=== PATIENT | female | born 1970 | race Caucasian/White ===

== ENCOUNTER → 2017-01-12 | Outpatient (CLI) | payer BC ==
[~2017-01-12] MED LIST: MULT-506 PO
--- NOTE | 2017-01-12 15:29 | MAMMOGRAPHY REPORT ---
BILATERAL DIGITAL SCREENING MAMMOGRAM TOMOSYNTHESIS WITH CAD: 01/12/2017 CLINICAL HISTORY: Routine screening. Patient has no complaints. TECHNIQUE: Breast tomosynthesis in addition to standard 2D mammography was performed. Current study was also evaluated with a Computer Aided Detection (CAD) system. COMPARISON: Comparison is made to exams dated: 01/09/2016 mammogram, 01/29/2015 ultrasound, 5 mammogram, and 01/06/2015 mammogram - [facility]. BREAST COMPOSITION: The tissue of both breasts is extremely dense, which lowers the sensitivity of m ammography. FINDINGS: There is a stable biopsy marker clip in the lateral left breast. No suspicious mass, arch itectural distortion or cluster of new, suspicious microcalcifications is seen. IMPRESSION: ACR BI-RADS CATEGORY 1: NEGATIVE There is no mammographic evidence of malignancy. A 1 year screening mammogram is recommended. The pa tient will receive written notification of the results. Approximately 10% of breast cancers are not detected with mammography. A negative mammographic report should not delay biopsy if a clinically suggestive mass is present. Jen Hassan M.D. ay/:01/12/2017 10:47:06 Funeral Pre Arrangement Counselor: Karissa DUVAL(Aliyah)(Jessica), [facility] letter sent: Normal 1/2 BI-RADS Code: ACR BI-RADS Category 1: Negative
== END | disposition home or self-care (01) ==
LOC: C.MAMM 09:15
PROVIDERS: ATTEND Obstetrics & Gynecology
DX: Z12.31 Encounter for screening mammogram for malignant neoplasm of breast (principal)

== ENCOUNTER 2018-09-04 11:21 | Observation (INO) ==
[2018-09-04 12:04] LABS: Basophils # (auto) 0.02 K/uL (0-0.2); Basophils % (auto) 0.3 %; Eosinophils # (auto) 0.08 K/uL (0-0.5); Eosinophils % (auto) 1.3 %; Hematocrit (blood only) 42.4 % (37-47); Hemoglobin 15.1 g/dL (12.0-16.0); Immature Granulocytes # (auto) 0.01 K/uL (0.00-0.02); Immature Granulocytes % (auto) 0.2 %; Lymphocytes # (auto) 1.09 K/uL (1.2-3.4); Lymphocytes % (auto) 17.2 %; Mean Corpuscular Hgb Conc 35.6 g/dL (32-36); Mean Corpuscular Volume 89.1 fL (80-100); Mean Platelet Volume 10.5 fL (7.4-10.4); Monocytes # (auto) 0.39 K/uL (0.11-0.59); Monocytes % (auto) 6.2 %; Neutrophils # (auto) 4.74 K/uL (1.4-6.5); Neutrophils % (auto) 74.8 %; Platelet Count 184 K/uL (130-400); RDW Coefficient of Variation 12.5 % (11.5-14.5); RDW Standard Deviation 40.3 fL (36.4-46.3); Red Blood Count 4.76 M/uL (4.2-5.4); White Blood Count 6.33 K/uL (4.8-10.8)
--- OUTSIDE RECORDS SUMMARY | 2018-09-04 12:05 | External Medical Summary | Continuity of Care Document ---
:1970 Author Name Manolo Flores Address Unavailable Unavailable , Care Team Providers Name Role Phone Danilo Harris M.D. Unavailable [email or web address] Isauro ROJAS Unavailable Unavailable Unavailable Unavailable Unavailable Problems Encounter for gynecological examination without abnormal finding (V72.31) (Z01.419) Umbilical hernia (553.1) (K42.9) Dysmenorrhea (625.3) (N94.6) Dysfunctional uterine bleeding (626.8) (N93.8) History of Unspecified Complication Of Procedure (998.9) Status: Resolved Allergies and Adverse Reactions No Known Drug Allergies (Allergy) Soy (Allergy) Reaction: Swelling Medications Ortho-Novum (28) 1-35 MG-MCG Oral Tablet; TAKE ON E TABLET BY MOUTH DAILY Mark Ruiz Start: 04-Mar-2016 Quantity: 28 Refills: 12 Krill Oil CAPS Refills: 0 Multiple Vitamin TABS Refills: 0 ZyrTEC Allergy TBDP Refills: 0 Nasonex SUSP Refills: 0 Probiotic CAPS Refills: 0 Procedures History of Encounter for contraceptive management Status: Completed History of Hernia Repair Status: Complet ed History of Section Status: Comp leted History of Supervision of normal Status: Completed Immunizations Immunizations not documented Family History Father Family history of Diabetes Mellitus (V18.0) Status: Active Family history of Prostate Cancer (V16.42) Status: Active Grandfather Family history of Heart Disease (V17.49) Status: Active Social History - Smoking Status Unknown if ever smoked Never smoker Plan of Treatment Planned Encounters Appointment; Tremaine Harris M.D. Start: 11-Oct-2018 8:30 Req uest Planned Observations Planned Goals not documented Results No Known Results Results not documented Encounters Appointment; Tremaine Harris M.D. 11-Oct-2018 8:30 Encounter Diagnosis: Problem not documented
[2018-09-04 12:12] LABS: Appearance Urine Clear (Clear); Bacteria Urine Automated Negative (Negative); Bilirubin Urine Negative (Negative); Blood Urine Negative (Negative); Color Urine Yellow; Epithelial Cell Urine Auto >30 /lpf (0-5); Glucose Urine UA Negative (Negative); Ketones Urine Negative (Negative); Leukocyte Esterase Urine 3+ (Negative); Nitrite Urine Negative (Negative); Protein Urine Negative (Negative); RBC Urine Automated 0-4 /hpf (0-4); Specific Gravity Urine 1.018 (1.000-1.030); Urobilinogen Urine Negative (Negative); pH Urine 5.5 (4.5-7.5)
[2018-09-04 12:22] LABS: Albumin Level 4.1 gm/dl (3.4-5.0); BUN Creatinine Ratio 13.3 (10-20); Calcium 9.3 mg/dl (8.5-10.1); Creatinine Clr Calc Pharmacy 57.7 ml/min; Est GFR (African American) 87.1; Est GFR (Non-African American) 75.1; Potassium 3.7 mmol/L (3.5-5.1)
[2018-09-04 12:25] LABS: Albumin Globulin Ratio 1.1 (0.9-2); Bilirubin,Total 0.5 mg/dl (0.2-1); Globulin 3.7 gm/dl (2.5-4.0); Total Protein 7.8 gm/dl (6.4-8.2)
[2018-09-04] MEDS ORDERED: SUCRALFATE 1 GM TAB PO STA (12:41)
[2018-09-04] MEDS ORDERED: SODIUM CHLORIDE 0.9% 1000ML 1,000 ML IV ONE (12:41)
[2018-09-04] MEDS ORDERED: GI COCKTAIL ED USE PO ONE (12:41)
[2018-09-04] MEDS ORDERED: ONDANSETRON INJ 2 MG/ML 2 ML VIAL IV STA (12:41)
--- NOTE | 2018-09-04 12:54 | XRay Report ---
XR chest 1V portable CLINICAL HISTORY: 48 years-old Female presenting with Chest Pain, upper abdominal pain. TECHNIQUE: Portable upright AP view of the chest was obtained. COMPARISON: None. FINDINGS: Cardiomediastinal silhouette normal. No focal opacity. No large effusion or pneumothorax. Osseous str uctures normal. Upper abdomen normal. IMPRESSION: 1. No acute cardiopulmonary disease. Electronically signed by: Mika Winston M.D. 09/04/2018 12:53 PM
[2018-09-04 13:01] LABS: Pregnancy Test, Urine Negative (Negative)
[2018-09-04 13:28] LABS: Amphetamines+Metham, Urine Neg (Neg); Barbiturates, Urine Neg (Neg); Benzodiazepine, Urine Neg (Neg); Cocaine, Urine Neg (Neg); MDMA (Ecstacy), Urine Neg (Neg); Methadone, Urine Neg (Neg); Opiate, Urine Neg (Neg); Phencyclidine, Urine Neg (Neg)
[2018-09-04 13:32] LABS: Lyme Ab IgG w/WB Rflx Negative (Negative); Lyme Ab IgM w/WB Rflx Negative (Negative)
[2018-09-04] MEDS ORDERED: IOVERSOL 100ml IV PRN (15:25)
--- NOTE | 2018-09-04 15:44 | CT Scan Report ---
CT abd pelvis oral and IV con CLINICAL HISTORY: 48 years-old Female presenting with epigastric pain, generalized abdominal pain. TECHNIQUE: Multidetector CT of the abdomen and pelvis was performed after the administration of oral and intravenous contrast. IV contrast: 90 mL of Optiray 320. One or more dose lowering techniques wer e used consistent with the principles of ALARA (as low as reasonably achievable), including automatic exposure control, mA or kV adjustment to individual patient size, and/or use of iterative reconstruc tion. COMPARISON: 01/01/2015. CT DOSE (mGy.cm): The estimated cumulative dose is 230.05 mGy.cm. 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 Lung bases: Normal heart size. No pericardial or pleural effusion. Minimal dependent changes likely a telectasis. Liver: Normal morphology. No liver lesion. Patent hepatic vasculature. Biliary: No intrahepatic or extrahepatic biliary ductal dilatation. Normal gallbladder. Pancreas: Normal. Spleen: Normal. Adrenal glands: Normal. Kidneys and ureters: Normal. No hydronephrosis. Bladder: Normal. Pelvic organs: Uterus and ovaries normal. Bowel: Normal appendix. No bowel obstruction. Peritoneal cavity: No free fluid or intraperitoneal gas. Lymph nodes: No enlarged lymph nodes in the abdomen or pelvis. Vasculature: Aorta and IVC patent and normal in caliber. Abdominal wall: Postsurgical changes of hernia repair in the lower abdomen. No associated fluid or re current hernia. Musculoskeletal: Normal. IMPRESSION: 1. Expected postsurgical appearance status post hernia repair. No acute intra-abdominal pathology. Electronically signed by: Mika Winston M.D. 09/04/2018 3:43 PM
[2018-09-04 15:51] LABS: Cdiff Antigen Positive; Cdiff Toxin A+B Negative Cdiff Toxin (Negative)
[2018-09-04] MEDS ORDERED: VANCOMYCIN HCL 125 MG/2.5ML SOLN PO STA (16:51)
[2018-09-04] MEDS ORDERED: RASPBERRY SYRUP 5 ML UDP PO SCH (18:00)
--- NOTE | 2018-09-04 18:03 | History & Physical Report ---
Date of Service September 04, 2018 Assessment & Plan (1) Diarrhea: (2) Abdominal discomfort: Pt with ongoing epigastric discomfort, nausea, dry heaves and 3 loose BM's daily In ER pt afebrile, vitals stable. No leukocytosis, no electrolyte abnormality C-diff gene positive, with negative c-diff toxin -was started on oral vancomycin in ER -will continue oral vancomycin for now, however may not be active c-diff with nebative c-diff toxin -stool cultures pending -IVF -bland diet as tolerated -nutrition consult -monitor bmp, magnesium -if no improvement or worsening consider GI consult (3) H. pylori infection: Hx H Pylori diagnosed by EGD in 06/2018. Treated omeprazole, clarithromycin, amoxicillin x14 day. Had follow up H. pylori stool which was negative on 08/16/2018 DVT Prophylaxis -SCDs Follows with Dr Salguero for routine care Pt was seen with Dr Jimenez. See addendum History of Present Illness Chief Complaint: abdominal discomfort Primary Care Provider: Trini Macias Pt is 48 y/o F with PMH H Pylori diagnosed by EGD in 06/2018 presented to ER with c/o abdominal discomfort. Pt was treated with omeprazole, clarithromycin, amoxicillin x14 days for H. pylori in 06/2018. Patient had follow-up H. pylori stool which was negative on 08/16/2018. Has not continued to take any PPI's. Patie nt reports has had continued epigastric discomfort. States has had decreased appetite. Has been eating a bland diet (rice, oatmeal, apples) however has been eating small amounts secondary to increased epigastric discomfort with eating. Patient reports has been having intermittent dry heaves worse after eating. Reports 3 loose stools in the morning daily. States his last approximately 11 pounds over the last 6-8 weeks. She states has been feeling weak and shaky. Concerned about her nutritional status with her limited oral intake. States having trouble with awakening from sleep and unable to return to sleep over the past 2 months also. Denies fever/chills, diaphoresis, hematemesis, hematochezia, melena, PICKETT, dizziness, syncope, vision changes, neck pain, CP, SOB, orthopnea, palpitations, cough, sore throat, choking, otalgia, rhinorrhea, paresthesias, extremity weakness, extremity edema, rashes, urinary symptoms. Denies recent travel. Denies known ill contacts. Denies known hx c-diff in past. Allergies Allergy/AdvReac Type Severity Reaction Status Date / Time soy Allergy Unknown UNKNOWN Verified 09/04/18 14:35 Home Medications Home Medications Medication Instructions Recorded Confirmed Type cholecalciferol (vitamin D3) 2,000 unit PO QAM 09/04/18 09/04/18 History [Vitamin D3] loratadine [Claritin] 10 mg PO QAM 09/04/18 09/04/18 History triamcinolone acetonide [Nasacort] 1 spray INTRANASAL QAM 09/04/18 09/04/18 History Past Med/Surg History Medical History H. pylori infection (Resolved) Left ovarian cyst (Resolved) Hx of sinusitis Surgical History H/O hernia repair (Chronic) Hx of section Family History Father Diabetes Prostate cancer Mother Asthma Social History Preferred Language: German Communication Ability: Effective Principal Statistical Scientist Required: No Beliefs That Will Affect Care: None marital status: Current Living Situation: Spouse and Family current occupational status: unemployed Other Information That Helps Us Care for You: No Feels Safe at Home: Yes Safety Concerns: Feels Safe At This Time Smoking Status: Never smoker Do You Dip or Chew Tobacco: No Second Hand Exposure: No Tobacco Cessation Education Requested by Patient: No Hx Alcohol Use: No Hx Substance Use: No Review of Systems Review of Systems: All systems reviewed & are unremarkable except as noted in HPI & below Physical Exam Physical Exam: General: no distress, thin, non ill appearing Head: normocephalic, atraumatic Eyes: PERRL, EOM's intact, conjunctiva non-injected, anicteric ENT: normal inspection external ears, nose, mucous membranes moist Neck: supple, trachea midline Lungs: clear, no respiratory distress, no wheezing/rhonchi/rales CV: RRR, no murmur, no pretibial edema Abd: normal BS, soft,mild tenderness to palpation epigastric only Ext: no cyanosis, no calf tenderness Neuro: A&O x 3, no focal deficits noted, normal affect Skin: warm, dry Results & Data Vital Signs (Past 12 Hours) Vital Signs Temp Pulse Pulse Resp BP BP Pulse Ox 09/04/18 16:30 78 20 119/78 97 09/04/18 16:00 77 15 115/83 99 09/04/18 15:34 83 78 17 111/74 111/74 98 09/04/18 14:30 83 15 105/74 99 09/04/18 14:00 91 H 17 126/85 99 09/04/18 13:30 83 16 117/81 99 09/04/18 13:16 78 17 115/85 96 09/04/18 13:14 80 20 97 09/04/18 12:48 97 09/04/18 11:27 36.8 C 20 124/86 97 Laboratory Results Short CBC 09/04/18 Range/Units 11:48 WBC 6.33 (4.8-10.8) K/uL Hgb 15.1 (12.0-16.0) g/dL Hct 42.4 (37-47) % Plt Count 184 (130-400) K/uL BMP 09/04/18 11:48 Sodium 139 Potassium 3.7 Chloride 106 Carbon Dioxide 27 BUN 12 Creatinine 0.91 Glucose 122 H Calcium 9.3 Cardiac Enzymes 09/04/18 Range/Units 11:48 Troponin I < 0.015 (0-0.045) ng/ml Liver Function 09/04/18 Range/Units 11:48 Total Bilirubin 0.5 (0.2-1) mg/dl AST 21 (15-37) U/L ALT 26 (12-78) U/L Alkaline Phosphatase 73 (45-117) U/L Albumin 4.1 (3.4-5.0) gm/dl Urine 09/04/18 Range/Units 11:48 Urine Color Yellow Urine Appearance Clear (Clear) Urine pH 5.5 (4.5-7.5) Ur Specific Hubbard 1.018 (1.000-1.030) Urine Protein Negative (Negative) Urine Glucose (UA) Negative (Negative) Diagnostic Findings CT ABD/PELVIS: IMPRESSION: 1. Expected postsurgical appearance status post hernia repair. No acute intra- abdominal pathology. CXR: IMPRESSION: 1. No acute cardiopulmonary disease. Supervising Physician Co-Signing Physician Notes 48 years old female patient with Hx of abdominal discomfort and bloating, EGD few months ago showed H.Pylori gastritis, this was treated and confirmed eradication by stool test. presents with abdominal pain , nausea .dry heave , poor appetite labs within normal limit observation in medical floor IVf prn zofran for nausea GI nola Jimenez MD
--- NOTE | 2018-09-04 19:27 | Emergency Department Note ---
Entered by Yara Mcleod acting as a scribe for Víctor Meeks MD History of Present Illness General Chief complaint: Abdominal Pain Stated complaint: ABD PAIN, DRY HEAVING Time Seen by Provider: 09/04/18 12:00 Source: patient History of Present Illness Onset (ago): week(s) (6) Location: abdomen Pain Consistency: + constant Maximum Pain Intensity: 4 Quality: + other (tenderness) Associated symptoms: + loss of appetite, + rash, + weakness and + other (issues sleeping and dry heaving) The patient is a 48 year old female who presents to the ED with complaints of constant diffuse abdominal tenderness beginning 6 weeks ago. Patient stated she has been sick for a few months with dry heaving, loss of appetite, feeling weak, and not sleeping. She notes she has been treated for H Pylori, and shortly after finishing the medication to treat it she began to feel sick. The patient also reports swelling on her hands and a ring on her shoulder that she believes is ring worm. She stated she does not go outside often but attends baseball games and has children who are outside often. Patient stated no other family members are sick. She also notes they have a dog that could have brought in ticks. The patient had abdominal surgery in the past for umbilical hernia. Patient has been following with GI but could not get an appointment till September. She also notes that she been having throat pain that she associates with acid reflux. Patient denies taking any medications for current symptoms. Home Medications Home Medications Medication Instructions Recorded Confirmed Type cholecalciferol (vitamin D3) 2,000 unit PO QAM 09/04/18 09/04/18 History [Vitamin D3] loratadine [Claritin] 10 mg PO QAM 09/04/18 09/04/18 History triamcinolone acetonide [Nasacort] 1 spray INTRANASAL QAM 09/04/18 09/04/18 History Allergies Allergy/AdvReac Type Severity Reaction Status Date / Time soy Allergy Unknown UNKNOWN Verified 09/04/18 14:35 Past Med/Surg History Medical History H. pylori infection (Resolved) Left ovarian cyst (Resolved) Hx of sinusitis Surgical History H/O hernia repair (Chronic) Hx of section Family History Father Diabetes Prostate cancer Mother Asthma Social History Preferred Language: Malaysian marital status: Current Living Situation: Family current occupational status: unemployed Feels Safe at Home: Yes Smoking Status: Never smoker Hx Alcohol Use: No Hx Substance Use: No Review of Systems See HPI for pertinent positives & negatives. and A total of 10 systems reviewed and were otherwise negative Physical Exam Vital Signs Vital Signs - 24 hr 09/04/18 11:27 09/04/18 12:48 09/04/18 13:14 Temperature 36.8 C Temperature Source Oral Sepsis Recent Fever Within 48 Hours No Sepsis Action Taken by Nursing No Action Required Pulse Rate 80 Pulse Rate [Right Finger] Pulse Rate from SpO2 Sensor Pulse Rhythm Regular Respiratory Rate 20 20 Blood Pressure 124/86 Blood Pressure [Right Arm] Blood Pressure Mean 98 Blood Pressure Mean [Right Arm] Blood Pressure Position Sitting Pulse Oximetry 97 97 97 Oxygen Delivery Method Room Air Room Air Room Air 09/04/18 13:16 09/04/18 13:30 09/04/18 14:00 Temperature Temperature Source Sepsis Recent Fever Within 48 Hours Sepsis Action Taken by Nursing Pulse Rate 78 83 91 H Pulse Rate [Right Finger] Pulse Rate from SpO2 Sensor 80 83 Pulse Rhythm Respiratory Rate 17 16 17 Blood Pressure 115/85 117/81 126/85 Blood Pressure [Right Arm] Blood Pressure Mean 95 93 98 Blood Pressure Mean [Right Arm] Blood Pressure Position Pulse Oximetry 96 99 99 Oxygen Delivery Method Room Air Room Air Room Air 09/04/18 14:30 09/04/18 15:34 09/04/18 16:00 Temperature Temperature Source Sepsis Recent Fever Within 48 Hours Sepsis Action Taken by Nursing Pulse Rate 83 83 77 Pulse Rate [Right Finger] 78 Pulse Rate from SpO2 Sensor 84 Pulse Rhythm Respiratory Rate 15 17 15 Blood Pressure 105/74 111/74 115/83 Blood Pressure [Right Arm] 111/74 Blood Pressure Mean 84 86 93 Blood Pressure Mean [Right Arm] 86 Blood Pressure Position Pulse Oximetry 99 98 99 Oxygen Delivery Method Room Air Room Air Room Air 09/04/18 16:30 09/04/18 17:00 09/04/18 17:30 Temperature Temperature Source Sepsis Recent Fever Within 48 Hours Sepsis Action Taken by Nursing Pulse Rate 78 88 87 Pulse Rate [Right Finger] Pulse Rate from SpO2 Sensor 86 Pulse Rhythm Respiratory Rate 20 18 15 Blood Pressure 119/78 113/72 109/73 Blood Pressure [Right Arm] Blood Pressure Mean 91 85 85 Blood Pressure Mean [Right Arm] Blood Pressure Position Pulse Oximetry 97 95 95 Oxygen Delivery Method Room Air Room Air Room Air GENERAL: Awake, alert, well-appearing, in no acute distress HENT: Normocephalic, atraumatic. Oropharynx unremarkable. EYES: Normal conjunctiva. Sclera non-icteric. NECK: Supple. No nuchal rigidity. FROM. No JVD. RESPIRATORY: Clear to auscultation. CARDIAC: Regular rate, normal rhythm. Extremities warm and well perfused. Pulses equal. ABDOMEN: Soft, non-distended. No tenderness to palpation. No rebound or guarding. No masses. Chronic scarring on mid-abdomen that is well healed. RECTAL: Deferred. MUSCULOSKELETAL: Chest examination reveals no tenderness. The back is symmetrical on inspection without obvious abnormality. There is no CVA tenderness to palpation. No joint edema. LOWER EXTREMITIES: Calves are equal size bilaterally and non-tender. No edema. No discoloration. NEURO: Normal sensorium. No sensory or motor deficits noted. SKIN: No rash or jaundice noted. Course 1217: The patient was evaluated in room C08. A complete history and physical exam was performed. 1402: I revaluated the patient. She is resting comfortably. 1641: I revaluated the patient again. I updated her on her test results and the treatment plan. She verbally agrees and understands. 1656: I discussed the patients case with OSWALDO Mixon. She will evaluate the patient for further management. Reevaluation(s) Reevaluation #1: I discussed the patients case with OSWALDO Mixon. She will evaluate the patient for further management. Time: 16:56 Administered Medications Ioversol (Optiray 320 100ml) 90 ml IV ONCE PRN PRN Reason: Interaction Checking Stop: 09/08/18 15:24 Last Admin: 09/04/18 15:26 Dose: 90 ml Documented by: [id number] Raspberry (Raspberry) 5 ml PO Q6 SAMRA Stop: 09/18/18 17:59 Last Admin: 09/04/18 17:03 Dose: 5 ml Documented by: [id number] Discontinued Medications Al Hydrox/Mg Hydrox/Simethicone () 1 dose PO ONE ONE Stop: 09/04/18 12:42 Last Admin: 09/04/18 19:05 Dose: Not Given Documented by: [id number] Sodium Chloride (Nss 1000ml) 1,000 mls @ 999 mls/hr IV .Q1H1M ONE Stop: 09/04/18 13:41 Last Infusion: 09/04/18 14:26 Dose: 0 mls/hr Documented by: [id number] Admin: 09/04/18 12:58 Dose: 999 mls/hr Documented by: [id number] Ondansetron HCl (Zofran) 4 mg IV NOW STA Stop: 09/04/18 12:42 Last Admin: 09/04/18 12:58 Dose: 4 mg Documented by: [id number] Sucralfate (Carafate Tab) 1 gm PO NOW STA Stop: 09/04/18 12:42 Last Admin: 09/04/18 19:05 Dose: Not Given Documented by: [id number] Vancomycin HCl (Vancomycin Hcl) 125 mg PO NOW STA Stop: 09/04/18 16:52 Last Admin: 09/04/18 17:03 Dose: 125 mg Documented by: [id number] Medical Decision Making Differential Diagnosis Differential diagnosis: Etiologies such as biliary colic, cholecystitis, hepatitis, perihepatitis, panc reatitis, cardiac disease, pancreatitis, gastritis, peptic ulcer disease, appendicitis, ovarian cyst, ovarian torsion, ectopic , pelvic inflammatory disease, cystitis, diverticulitis, mesenteric ischemia, inflammatory bowel disease, ileus, bowel obstruction, aortic pathology, shingles, as well as others were considered. Medical Records Attestation: I reviewed the patient's medical records. Home Medications Current Medication List: was personally reviewed by me Laboratory Data Attestation: I reviewed the patient's lab results. Result diagrams: 09/04/18 11:48 09/04/18 11:48 Lab Results 09/04/18 09/04/18 09/04/18 Range/Units 11:48 11:48 11:48 WBC 6.33 (4.8-10.8) K/uL RBC 4.76 (4.2-5.4) M/uL Hgb 15.1 (12.0-16.0) g/dL Hct 42.4 (37-47) % MCV 89.1 (80-100) fL MCH 31.7 (25-34) pg MCHC 35.6 (32-36) g/dL RDW Std Deviation 40.3 (36.4-46.3) fL RDW Coeff of Stan 12.5 (11.5-14.5) % Plt Count 184 (130-400) K/uL MPV 10.5 H (7.4-10.4) fL Immature Gran % (Auto) 0.2 % Neut % (Auto) 74.8 % Lymph % (Auto) 17.2 % [place] % (Auto) 6.2 % Eos % (Auto) 1.3 % Baso % (Auto) 0.3 % Immature Gran # (Auto) 0.01 (0.00-0.02) K/uL Neut # (Auto) 4.74 (1.4-6.5) K/uL Lymph # (Auto) 1.09 L (1.2-3.4) K/uL [place] # (Auto) 0.39 (0.11-0.59) K/uL Eos # (Auto) 0.08 (0-0.5) K/uL Baso # (Auto) 0.02 (0-0.2) K/uL Sodium 139 (136-145) mmol/L Potassium 3.7 (3.5-5.1) mmol/L Chloride 106 (98-107) mmol/L Carbon Dioxide 27 (21-32) mmol/L Anion Gap 7.0 (3-11) BUN 12 (7-18) mg/dl Creatinine 0.91 (0.6-1.2) mg/dl Est Cr Clr Drug Dosing 57.7 ml/min Est GFR ( Amer) 87.1 Est GFR (Non-Af Amer) 75.1 BUN/Creatinine Ratio 13.3 (10-20) Glucose 122 H (70-99) mg/dl Calcium 9.3 (8.5-10.1) mg/dl Total Bilirubin 0.5 (0.2-1) mg/dl AST 21 (15-37) U/L ALT 26 (12-78) U/L Alkaline Phosphatase 73 (45-117) U/L Troponin I (0-0.045) ng/ml Total Protein 7.8 (6.4-8.2) gm/dl Albumin 4.1 (3.4-5.0) gm/dl Globulin 3.7 (2.5-4.0) gm/dl Albumin/Globulin Ratio 1.1 (0.9-2) Lipase 136 (73-393) U/L Urine Color Yellow Urine Appearance Clear (Clear) Urine pH 5.5 (4.5-7.5) Ur Specific [place] 1.018 (1.000-1.030) Urine Protein Negative (Negative) Urine Glucose (UA) Negative (Negative) Urine Ketones Negative (Negative) Urine Blood Negative (Negative) Urine Nitrite Negative (Negative) Urine Bilirubin Negative (Negative) Urine Urobilinogen Negative (Negative) Ur Leukocyte Esterase 3+ H (Negative) Urine WBC (Auto) 10-30 H (0-5) /hpf Urine RBC (Auto) 0-4 (0-4) /hpf U Hyaline Cast (Auto) 1-5 (0-5) /lpf U Epithel Cells (Auto) >30 H (0-5) /lpf Urine Bacteria (Auto) Negative (Negative) Urine Test (Negative) Stl C. diff Tox B Gene (Neg) Stl C.difficile Tox A&B (Negative) Urine Opiates Screen (Neg) Ur Methadone, Qual (Neg) Urine Barbiturates (Neg) Ur Phencyclidine (PCP) (Neg) U Amphetamin/Meth Scrn (Neg) MDMA (Ecstasy) Screen (Neg) U Benzodiazepines Scrn (Neg) Ur Cocaine Metabolite (Neg) U Marijuana (THC) Screen (Neg) Lyme Disease IgG Ab (Negative) Lyme Disease IgM Ab (Negative) 09/04/18 09/04/18 09/04/18 Range/Units 11:48 11:48 11:48 WBC (4.8-10.8) K/uL RBC (4.2-5.4) M/uL Hgb (12.0-16.0) g/dL Hct (37-47) % MCV (80-100) fL MCH (25-34) pg MCHC (32-36) g/dL RDW Std Deviation (36.4-46.3) fL RDW Coeff of Stan (11.5-14.5) % Plt Count (130-400) K/uL MPV (7.4-10.4) fL Immature Gran % (Auto) % Neut % (Auto) % Lymph % (Auto) % [place] % (Auto) % Eos % (Auto) % Baso % (Auto) % Immature Gran # (Auto) (0.00-0.02) K/uL Neut # (Auto) (1.4-6.5) K/uL Lymph # (Auto) (1.2-3.4) K/uL [place] # (Auto) (0.11-0.59) K/uL Eos # (Auto) (0-0.5) K/uL Baso # (Auto) (0-0.2) K/uL Sodium (136-145) mmol/L Potassium (3.5-5.1) mmol/L Chloride (98-107) mmol/L Carbon Dioxide (21-32) mmol/L Anion Gap (3-11) BUN (7-18) mg/dl Creatinine (0.6-1.2) mg/dl Est Cr Clr Drug Dosing ml/min Est GFR ( Amer) Est GFR (Non-Af Amer) BUN/Creatinine Ratio (10-20) Glucose (70-99) mg/dl Calcium (8.5-10.1) mg/dl Total Bilirubin (0.2-1) mg/dl AST (15-37) U/L ALT (12-78) U/L Alkaline Phosphatase (45-117) U/L Troponin I < 0.015 (0-0.045) ng/ml Total Protein (6.4-8.2) gm/dl Albumin (3.4-5.0) gm/dl Globulin (2.5-4.0) gm/dl Albumin/Globulin Ratio (0.9-2) Lipase (73-393) U/L Urine Color Urine Appearance (Clear) Urine pH (4.5-7.5) Ur Specific [place] (1.000-1.030) Urine Protein (Negative) Urine Glucose (UA) (Negative) Urine Ketones (Negative) Urine Blood (Negative) Urine Nitrite (Negative) Urine Bilirubin (Negative) Urine Urobilinogen (Negative) Ur Leukocyte Esterase (Negative) Urine WBC (Auto) (0-5) /hpf Urine RBC (Auto) (0-4) /hpf U Hyaline Cast (Auto) (0-5) /lpf U Epithel Cells (Auto) (0-5) /lpf Urine Bacteria (Auto) (Negative) Urine Test (Negative) Stl C. diff Tox B Gene (Neg) Stl C.difficile Tox A&B (Negative) Urine Opiates Screen Neg (Neg) Ur Methadone, Qual Neg (Neg) Urine Barbiturates Neg (Neg) Ur Phencyclidine (PCP) Neg (Neg) U Amphetamin/Meth Scrn Neg (Neg) MDMA (Ecstasy) Screen Neg (Neg) U Benzodiazepines Scrn Neg (Neg) Ur Cocaine Metabolite Neg (Neg) U Marijuana (THC) Screen Neg (Neg) Lyme Disease IgG Ab Negative (Negative) Lyme Disease IgM Ab Negative (Negative) 09/04/18 09/04/18 Range/Units 11:48 11:53 WBC (4.8-10.8) K/uL RBC (4.2-5.4) M/uL Hgb (12.0-16.0) g/dL Hct (37-47) % MCV (80-100) fL MCH (25-34) pg MCHC (32-36) g/dL RDW Std Deviation (36.4-46.3) fL RDW Coeff of Stan (11.5-14.5) % Plt Count (130-400) K/uL MPV (7.4-10.4) fL Immature Gran % (Auto) % Neut % (Auto) % Lymph % (Auto) % [place] % (Auto) % Eos % (Auto) % Baso % (Auto) % Immature Gran # (Auto) (0.00-0.02) K/uL Neut # (Auto) (1.4-6.5) K/uL Lymph # (Auto) (1.2-3.4) K/uL [place] # (Auto) (0.11-0.59) K/uL Eos # (Auto) (0-0.5) K/uL Baso # (Auto) (0-0.2) K/uL Sodium (136-145) mmol/L Potassium (3.5-5.1) mmol/L Chloride (98-107) mmol/L Carbon Dioxide (21-32) mmol/L Anion Gap (3-11) BUN (7-18) mg/dl Creatinine (0.6-1.2) mg/dl Est Cr Clr Drug Dosing ml/min Est GFR ( Amer) Est GFR (Non-Af Amer) BUN/Creatinine Ratio (10-20) Glucose (70-99) mg/dl Calcium (8.5-10.1) mg/dl Total Bilirubin (0.2-1) mg/dl AST (15-37) U/L ALT (12-78) U/L Alkaline Phosphatase (45-117) U/L Troponin I (0-0.045) ng/ml Total Protein (6.4-8.2) gm/dl Albumin (3.4-5.0) gm/dl Globulin (2.5-4.0) gm/dl Albumin/Globulin Ratio (0.9-2) Lipase (73-393) U/L Urine Color Urine Appearance (Clear) Urine pH (4.5-7.5) Ur Specific [place] (1.000-1.030) Urine Protein (Negative) Urine Glucose (UA) (Negative) Urine Ketones (Negative) Urine Blood (Negative) Urine Nitrite (Negative) Urine Bilirubin (Negative) Urine Urobilinogen (Negative) Ur Leukocyte Esterase (Negative) Urine WBC (Auto) (0-5) /hpf Urine RBC (Auto) (0-4) /hpf U Hyaline Cast (Auto) (0-5) /lpf U Epithel Cells (Auto) (0-5) /lpf Urine Bacteria (Auto) (Negative) Urine Test Negative (Negative) Stl C. diff Tox B Gene Positive Cdiff Gene H (Neg) Stl C.difficile Tox A&B Negative Cdiff Toxin (Negative) Urine Opiates Screen (Neg) Ur Methadone, Qual (Neg) Urine Barbiturates (Neg) Ur Phencyclidine (PCP) (Neg) U Amphetamin/Meth Scrn (Neg) MDMA (Ecstasy) Screen (Neg) U Benzodiazepines Scrn (Neg) Ur Cocaine Metabolite (Neg) U Marijuana (THC) Screen (Neg) Lyme Disease IgG Ab (Negative) Lyme Disease IgM Ab (Negative) Imaging Data Radiologist's Impression: Radiology results as stated below per my review and the radiologist's interpretation: CT abd pelvis oral and IV con CLINICAL HISTORY: 48 years-old Female presenting with epigastric pain, generalized abdominal pain. TECHNIQUE: Multidetector CT of the abdomen and pelvis was performed after the administration of oral and intravenous contrast. IV contrast: 90 mL of Optiray 320. One or more dose lowering techniques were used consistent with the principles of ALARA (as low as reasonably achievable), including automatic exposure control, mA or kV adjustment to individual patient size, and/or use of iterative reconstruction. COMPARISON: 01/01/2015. CT DOSE (mGy.cm): The estimated cumulative dose is 230.05 mGy.cm. FINDINGS: [employer] topogram: Unremarkable. Lung bases: Normal heart size. No pericardial or pleural effusion. Minimal dependent changes likely atelectasis. Liver: Normal morphology. No liver lesion. Patent hepatic vasculature. Biliary: No intrahepatic or extrahepatic biliary ductal dilatation. Normal gallbladder. Pancreas: Normal. Spleen: Normal. Adrenal glands: Normal. Kidneys and ureters: Normal. No hydronephrosis. Bladder: Normal. Pelvic organs: Uterus and ovaries normal. Bowel: Normal appendix. No bowel obstruction. Peritoneal cavity: No free fluid or intraperitoneal gas. Lymph nodes: No enlarged lymph nodes in the abdomen or pelvis. Vasculature: Aorta and IVC patent and normal in caliber. Abdominal wall: Postsurgical changes of hernia repair in the lower abdomen. No associated fluid or recurrent hernia. Musculoskeletal: Normal. IMPRESSION: 1. Expected postsurgical appearance status post hernia repair. No acute intra- abdominal pathology. Electronically signed by: Mika Winston M.D. 09/04/2018 3:43 PM XR chest 1V portable CLINICAL HISTORY: 48 years-old Female presenting with Chest Pain, upper abdominal pain. TECHNIQUE: Portable upright AP view of the chest was obtained. COMPARISON: None. FINDINGS: Cardiomediastinal silhouette normal. No focal opacity. No large effusion or pneumothorax. Osseous structures normal. Upper abdomen normal. IMPRESSION: 1. No acute cardiopulmonary disease. Electronically signed by: Mika Winston M.D. 09/04/2018 12:53 PM ECG Data Attestation: I personally reviewed and interpreted this ECG as follows: Indication: abdominal pain Rate (beats per minute): 75 Rhythm: normal sinus Findings: + other (normal EKG); no ST depression and no ST elevation Blood Pressure Blood Pressure Findings: Normal blood pressure Blood Pressure Disposition: did not require urgent referral MDM Narrative This is a 48-year-old female who presents emergency department complaining of diarrhea since stopping antibiotics approximately 6 weeks ago. Patient reports that she is losing weight and is concerned because she is unable to keep any food down. She was given normal saline bolus as well as Zofran here in the emergency department. Again using shared medical decision making with the patient and her sister they would like a Lyme disease drawn. Even though the L yme antibodies are negative the sister would also like a Western blot performed. In addition they would also like an ehrlichia as well as a anaplasmosis panel drawn. The patient is positive for C. difficile and I suspect that this may be the whole problem. She was started on oral vancomycin. Patient is requesting to be admitted though I noted to her and her sister that she has normal laboratory work including renal profile and CBC. Patient does not feel she can be take care of herself at home therefore the case was discussed with the hospitalist service as well as case management. Impression & Plan C. difficile diarrhea Discharge Plan Visit Data Chief Complaint: Abdominal Pain Stated Complaint: ABD PAIN, DRY HEAVING ED Provider: Víctor Meeks Discharge Problem: C. difficile diarrhea Patient Disposition: Being Evaluated by Hospitalist Discharge Instructions Interventions: ED Discharge Assessment Last Done: 09/04/18 19:08 The bobbiibe's documentation has been prepared under my direction and personally reviewed by me in its entirety. I confirm that the note above accurately reflects all work, treatment, procedures, and medical decision making performed by me.
[2018-09-04] MEDS ORDERED: ACETAMINOPHEN 325 MG TAB PO PRN (19:43)
[2018-09-04] MEDS ORDERED: ZOLPIDEM TARTRATE 5 MG TAB PO PRN (19:43)
[2018-09-04] MEDS: VANCOMYCIN HCL 125 MG/2.5ML SOLN PO SCH ×2 (19:54→23:41)
[2018-09-04] MEDS: RASPBERRY SYRUP 5 ML UDP PO SCH ×2 (19:54→23:40)
[2018-09-04] MEDS: D5W AND LACTATED RINGERS 1,000 ML IV SCH (21:09)
[2018-09-04] MEDS: LACTOBACILLUS ACIDOPHILUS (FLORANEX) TAB PO SCH (21:09)
[2018-09-04] MEDS: TRIAMCINOLONE ACET NASAL SPRAY 10.8ML BTL SCH ×2 (21:10→22:37)
[2018-09-04] MEDS: FLUTICASONE PROPIONATE NA SPR 16 GM BTL SCH (22:37)
[2018-09-05] MEDS: VANCOMYCIN HCL 125 MG/2.5ML SOLN PO SCH ×2 (05:13→11:27)
[2018-09-05] MEDS: D5W AND LACTATED RINGERS 1,000 ML IV SCH ×2 (05:13→13:05)
[2018-09-05] MEDS: RASPBERRY SYRUP 5 ML UDP PO SCH ×3 (05:13→17:06)
[2018-09-05] MEDS: ONDANSETRON INJ 2 MG/ML 2 ML VIAL IV PRN ×2 (06:36→06:37)
[2018-09-05 06:50] LABS: Calcium 9.3 mg/dl (8.5-10.1); Creatinine Clr Calc Pharmacy 57.7 ml/min; Est GFR (African American) 87.1; Est GFR (Non-African American) 75.1; Potassium 3.6 mmol/L (3.5-5.1)
[2018-09-05] MEDS: LORATADINE 10 MG TAB PO SCH (07:32)
[2018-09-05] MEDS: CHOLECALCIFEROL 1,000 UNITS TAB PO SCH (07:32)
[2018-09-05] MEDS: LACTOBACILLUS ACIDOPHILUS (FLORANEX) TAB PO SCH ×4 (07:32→20:53)
[2018-09-05] MEDS ORDERED: TRIAMCINOLONE ACET NASAL SPRAY 10.8ML BTL SCH (09:00)
--- NOTE | 2018-09-05 10:02 | Hospitalist Progress Note ---
Date of Service September 05, 2018 Assessment & Plan (1) C. difficile diarrhea: (2) Abdominal discomfort: Pt presenting with ongoing epigastric discomfort, nausea, dry heaves and 3 loose BM's daily -Afebrile, no leukocytosis, no electrolyte abnormality -C-diff gene positive, with negative c-diff toxin -Started on oral vancomycin in ER, which has been continued. Diarrhea not improved -Stool cultures negative to date -IVF, bland diet as tolerated, dietitian consult (has lost 10 lb in last month) -No electrolyte abnormalities. Continue trending BMP -GI consulted * repeat stool for c.diff if symptoms persist/change * trial Bentyl 10 mg three times daily PRN * FODMAPs diet as tolerated * Zantac 150 mg twice daily * Diagnostic colonoscopy as an outpatient within the next 1-2 weeks -Routine ID consult (3) H. pylori infection: H/o recent H Pylori diagnosed by EGD in 06/2018. Treated with omeprazole, clarithromycin, amoxicillin x14 day. Had follow up H. pylori stool which was negative on 08/16/2018 (4) Insomnia: -Tried Ambien last night without relief Starting Trazodone 50mg HS (5) Headache: Tension headache due to anxiety, lack of sleep -Tylenol PRN DVT Ppx: Teds Code status: FULL PCP: Jose M Dispo: Plan to return home once medically stable. Patient seen in collaboration with Dr. Jimenez. Please see addendum. Supervising Physician Co-Signing Physician Notes pt appears to be very anxious worried about issues with dry heaving and swallowing " feels her throat makes clicking sound when she swallows " recent EGD done for the similar symptom shows no evidence of esophageal stricture tolerating low fat diet appreciate input from GI ordered for carafate gastric emptying study in am -as pt complains of post prandial bloating Vancomycin D/briana by ID -appreciate input Full code monitor in medical floor plan to dc home when medically stable Shira Jimenez MD Subjective Patient seen and examined. Endorsing 4 episodes of watery diarrhea overnight. Feels like diarrhea may be worse since starting vanco but was having 3-5 episodes at home as well. No melena or hematochezia. Decreased abdominal disco mfort but still feeling nauseated. Early satiety. No fever or chills. Tolerating bland diet but still feels hungry. Has headache and is anxious about not sleeping well. Denies headache, lightheadedness, chest pain, palpitations, SOB or constipation. Review of Systems Review of Systems: At least ten systems reviewed and negative except as noted in the HPI. Physical Exam Physical Exam: General Appearance: WD/WN, no apparent distress, thin, anxious Head: normocephalic, atraumatic Eyes: normal inspection, PERRL, EOMI ENT: hearing grossly normal, pharynx normal (moist mucous membranes) Neck: supple, no JVD, no adenopathy Respiratory/Chest: lungs clear to auscultation. No wheezes, rales or rhonci. No respiratory distress or accessory muscle use Cardiovascular: regular rate, rhythm, no murmur, normal peripheral pulses Abdomen/GI: normal bowel sounds, soft, non-tender to palpation Extremities/Musculoskelatal: normal inspection, no calf tenderness, normal capillary refill, no pedal edema Neurologic/Psych: alert, normal mood/affect, oriented x 3 Skin: normal color, warm/dry Results & Data Vital Signs (Past 12 Hours) Vital Signs Temp Pulse Resp BP Pulse Ox 09/05/18 07:00 36.7 C 84 18 108/70 99 09/04/18 23:30 36.7 C 68 20 96/64 L 98 Laboratory Results Short CBC 09/04/18 Range/Units 11:48 WBC 6.33 (4.8-10.8) K/uL Hgb 15.1 (12.0-16.0) g/dL Hct 42.4 (37-47) % Plt Count 184 (130-400) K/uL BMP 09/04/18 09/05/18 11:48 05:39 Sodium 139 142 Potassium 3.7 3.6 Chloride 106 109 H Carbon Dioxide 27 27 BUN 12 7 D Creatinine 0.91 0.91 Glucose 122 H 100 H Calcium 9.3 9.3 Cardiac Enzymes 09/04/18 Range/Units 11:48 Troponin I < 0.015 (0-0.045) ng/ml Liver Function 09/04/18 Range/Units 11:48 Total Bilirubin 0.5 (0.2-1) mg/dl AST 21 (15-37) U/L ALT 26 (12-78) U/L Alkaline Phosphatase 73 (45-117) U/L Albumin 4.1 (3.4-5.0) gm/dl Urine 09/04/18 Range/Units 11:48 Urine Color Yellow Urine Appearance Clear (Clear) Urine pH 5.5 (4.5-7.5) Ur Specific [place] 1.018 (1.000-1.030) Urine Protein Negative (Negative) Urine Glucose (UA) Negative (Negative)
--- NOTE | 2018-09-05 12:40 | Gastrointestinal Consultation ---
Date of Consultation September 05, 2018 Assessment & Plan (1) Abdominal discomfort: 48 year old female with history of H.Pylori in June treated w/ triple therapy w/ documented clearance in August admitted w/ persistent abdominal pain, dry heaves, diarrhea and weight loss. CT ABD/Pelvis unremarkable, EGD otherwise unremarkable, c.diff toxin negative. - C.diff toxin negative - Follow up H.Pylori - Check stool culture - Trial Bentyl 10 mg three times daily as needed - FODMAPs diet as tolerated - Zantac 150 mg twice daily - Diagnostic colonoscopy as an outpatient within the next 1-2 weeks Thank you for allowing us to participate in the care of this patient. Please call with any acute changes, questions or concerns. Please see addendum below with additional recommendation from my supervising physician. Present on Admission?: Yes Supervising Physician Co-Signing Physician Notes I performed a history and physical examination of the patient, including specifically on physical exam - soft, nontender abdomen. I have discussed the patient's management with Liset. Please refer to the nurse practitioner's note for the documented findings and plan of care. 48 years old female patient with Hx of abdominal discomfort and bloating, EGD few months ago showed H.Pylori gastritis, this was treated and confirmed eradication by stool test. No reports worsening dry heaves which did not respond to PPI and changes in bowel habit. Also has nausea and early satiety. Prior imaging with gallstones. Likely IBS. Recommend: GES HIDA scan Trial of Carafate and Bentyl Needs Ambulatory PH as OP. Colonoscopy as OP. Recall GI if needed. History of Present Illness Reason for Consultation: dry heaving, diarrhea Requesting Physician: Tony Attending Physician: Shira Jimenez MD History of Present Illness 48 year old female with history of x 5, three prior abdominal surgeries for hernia repair, repair of diastasis-recti, H.Pylori who presented through the ED for evaluation of persistent abdominal pain. Pt was seen and evaluated, chart reviewed. Visitor at bedside. She notes she underwent EGD in June for evaluation of decreased appetite, early satiety and dry heaving. Overall unremarkable exam, biopsies w/ H.pyloti which was treated w/ triple therapy for fourteen days w/ PPI, cmycin, amoxicillin. With about 4/5 days left in therapy she notes that she felt better, less abdominal symptoms and no dry- heaving. However, she re-developed her abdominal pain. At that time follow-up H. pylori stool antigen was negative. Developed diarrhea after PO course of ABX. Had used probiotic daily, bland diet but symptoms persist. Stools alternate. Semi-formed to liquid. Can go 3-5 times daily. Brown stool. No black or bloody stools. No mucous in stool. Saw greasy stool x 1 occurrence. Has lost 10 lbs in 1 months. No fever, chills, CP, SOB Stool culture: not obtained H.Pylori: pending C.diff: gene positve, toxin negative CT ABD/Pelvis w/ IV and PO contrast: Expected postsurgical appearance status post hernia repair. No acute intra-abdominal pathology. EGD 2019: Normal esophagus. Biopsied.Normal stomach. Biopsied. Normal duodenal bulb and second portion of the duodenum.Biopsied. Colonoscopy: 20+ years ago for rectal bleeding, was told she had internal/external hemorrhiods Allergies Allergy/AdvReac Type Severity Reaction Status Date / Time soy Allergy Unknown UNKNOWN Verified 09/04/18 14:35 Home Medications Home Medications Medication Instructions Recorded Confirmed Type cholecalciferol (vitamin D3) 2,000 unit PO QAM 09/04/18 09/04/18 History [Vitamin D3] loratadine [Claritin] 10 mg PO QAM 09/04/18 09/04/18 History triamcinolone acetonide [Nasacort] 1 spray INTRANASAL QAM 09/04/18 09/04/18 History Patient History Medical History H. pylori infection (Resolved) Left ovarian cyst (Resolved) Hx of sinusitis Surgical History H/O hernia repair (Chronic) Hx of section Family History Father Diabetes Prostate cancer Mother Asthma Social History Preferred Language: Georgian Communication Ability: Effective [employer] Tier Required: No Beliefs That Will Affect Care: None marital status: Current Living Situation: Spouse and Family current occupational status: unemployed Other Information That Helps Us Care for You: No Feels Safe at Home: Yes Safety Concerns: Feels Safe At This Time Smoking Status: Never smoker Do You Dip or Chew Tobacco: No Second Hand Exposure: No Tobacco Cessation Education Requested by Patient: No Hx Alcohol Use: No Hx Substance Use: No Review of Systems Constitutional: + weight loss; no fever, no chills and no fatigue Respiratory: no cough, no dyspnea, no pain on inspiration and no wheezing Cardiovascular: no chest pain, no radiating jaw, neck or arm pain, no dyspnea on exertion and no palpitations Gastrointestinal: + abdominal pain, + bloating, + early satiety, + nausea, + cramping, + change in bowel habits, + change in stools and + diarrhea/loose stools; no belching, no heartburn, no vomiting, no coffee ground emesis, no hematemesis, no pain with swallowing, no dysphagia, no excessive flatulence, no constipation, no fecal incontinence, no constant urge to pass stools, no blood in stools, no melena and no problem reported Psychiatric: + anxiety Physical Exam Constitutional: WD/WN, vitals as above Neck: trachea midline Respiratory: normal respiratory effort, lungs clear to auscultation Cardiovascular: RRR, no murmur, no edema Gastrointestinal (Abdomen): Inspection/Auscultation: abdomen normal to inspection (evidence of healed surgical scars on abd) and normal bowel sounds Percussion/Palpation: + abdomen tender (generalized) and abdomen soft; no guarding and abdomen not rigid Skin: no rashes, warm and dry Psychiatric: Orientation: alert and oriented x 3 Results & Data Vital Signs (Past 12 Hours) Vital Signs Temp Pulse Resp BP Pulse Ox 09/05/18 07:00 36.7 C 84 18 108/70 99 Laboratory Results 09/05/18 09/04/18 09/04/18 Range/Units 05:39 22:00 11:53 Sodium 142 (136-145) mmol/L Potassium 3.6 (3.5-5.1) mmol/L Chloride 109 H (98-107) mmol/L Carbon Dioxide 27 (21-32) mmol/L Anion Gap 6.0 (3-11) BUN 7 D (7-18) mg/dl Creatinine 0.91 (0.6-1.2) mg/dl Est Cr Clr Drug Dosing 57.7 ml/min Est GFR ( Amer) 87.1 Est GFR (Non-Af Amer) 75.1 BUN/Creatinine Ratio 8.0 L (10-20) Glucose 100 H (70-99) mg/dl Calcium 9.3 (8.5-10.1) mg/dl Magnesium 2.0 (1.8-2.4) mg/dl Troponin I (0-0.045) ng/ml TSH (0.300-4.500) uIu/ml Urine Test (Negative) Stl C. diff Tox B Gene (Neg) Stl C.difficile Tox A&B (Negative) Stool H. pylori Ag Pending Urine Opiates Screen (Neg) Ur Methadone, Qual (Neg) Urine Barbiturates (Neg) Ur Phencyclidine (PCP) (Neg) U Amphetamin/Meth Scrn (Neg) MDMA (Ecstasy) Screen (Neg) U Benzodiazepines Scrn (Neg) Ur Cocaine Metabolite (Neg) U Marijuana (THC) Screen (Neg) A. phagocytophilum IgG A. phagocytophilum IgM A. phagocytophilum DNA A.phagocytophilum Intrp A. phagocytophilum Cmmt Lyme Disease IgG Ab (Negative) Lyme IgG (Western Blot) Lyme IgG 18 kDa Band Lyme IgG 23 kDa Band Lyme IgG 28 kDa Band Lyme IgG 30 kDa Band Lyme IgG 39 kDa Band Lyme IgG 41 kDa Band Lyme IgG 45 kDa Band Lyme IgG 58 kDa Band Lyme IgG 66 kDa Band Lyme IgG 93 kDa Band Lyme Disease IgM Ab (Negative) Lyme IgM (Western Blot) Lyme IgM 23 kDa Band Lyme IgM 39 kDa Band Lyme IgM 41 kDa Band E. chaffeensis IgG Ab E. chaffeensis IgM Ab E. chaffeensis Interp E. chaffeensis Comment Norovirus RNA (PCR) Pending 09/04/18 09/04/18 09/04/18 Range/Units 11:53 11:48 11:48 Sodium (136-145) mmol/L Potassium (3.5-5.1) mmol/L Chloride (98-107) mmol/L Carbon Dioxide (21-32) mmol/L Anion Gap (3-11) BUN (7-18) mg/dl Creatinine (0.6-1.2) mg/dl Est Cr Clr Drug Dosing ml/min Est GFR ( Amer) Est GFR (Non-Af Amer) BUN/Creatinine Ratio (10-20) Glucose (70-99) mg/dl Calcium (8.5-10.1) mg/dl Magnesium (1.8-2.4) mg/dl Troponin I (0-0.045) ng/ml TSH 1.670 (0.300-4.500) uIu/ml Urine Test (Negative) Stl C. diff Tox B Gene Positive Cdiff Gene H (Neg) Stl C.difficile Tox A&B Negative Cdiff Toxin (Negative) Stool H. pylori Ag Urine Opiates Screen (Neg) Ur Methadone, Qual (Neg) Urine Barbiturates (Neg) Ur Phencyclidine (PCP) (Neg) U Amphetamin/Meth Scrn (Neg) MDMA (Ecstasy) Screen (Neg) U Benzodiazepines Scrn (Neg) Ur Cocaine Metabolite (Neg) U Marijuana (THC) Screen (Neg) A. phagocytophilum IgG A. phagocytophilum IgM A. phagocytophilum DNA A.phagocytophilum Intrp A. phagocytophilum Cmmt Lyme Disease IgG Ab (Negative) Lyme IgG (Western Blot) Pending Lyme IgG 18 kDa Band Pending Lyme IgG 23 kDa Band Pending Lyme IgG 28 kDa Band Pending Lyme IgG 30 kDa Band Pending Lyme IgG 39 kDa Band Pending Lyme IgG 41 kDa Band Pending Lyme IgG 45 kDa Band Pending Lyme IgG 58 kDa Band Pending Lyme IgG 66 kDa Band Pending Lyme IgG 93 kDa Band Pending Lyme Disease IgM Ab (Negative) Lyme IgM (Western Blot) Pending Lyme IgM 23 kDa Band Pending Lyme IgM 39 kDa Band Pending Lyme IgM 41 kDa Band Pending E. chaffeensis IgG Ab E. chaffeensis IgM Ab E. chaffeensis Interp E. chaffeensis Comment Norovirus RNA (PCR) 09/04/18 09/04/18 09/04/18 Range/Units 11:48 11:48 11:48 Sodium (136-145) mmol/L Potassium (3.5-5.1) mmol/L Chloride (98-107) mmol/L Carbon Dioxide (21-32) mmol/L Anion Gap (3-11) BUN (7-18) mg/dl Creatinine (0.6-1.2) mg/dl Est Cr Clr Drug Dosing ml/min Est GFR ( Amer) Est GFR (Non-Af Amer) BUN/Creatinine Ratio (10-20) Glucose (70-99) mg/dl Calcium (8.5-10.1) mg/dl Magnesium (1.8-2.4) mg/dl Troponin I (0-0.045) ng/ml TSH (0.300-4.500) uIu/ml Urine Test Negative (Negative) Stl C. diff Tox B Gene (Neg) Stl C.difficile Tox A&B (Negative) Stool H. pylori Ag Urine Opiates Screen Neg (Neg) Ur Methadone, Qual Neg (Neg) Urine Barbiturates Neg (Neg) Ur Phencyclidine (PCP) Neg (Neg) U Amphetamin/Meth Scrn Neg (Neg) MDMA (Ecstasy) Screen Neg (Neg) U Benzodiazepines Scrn Neg (Neg) Ur Cocaine Metabolite Neg (Neg) U Marijuana (THC) Screen Neg (Neg) A. phagocytophilum IgG Pending A. phagocytophilum IgM Pending A. phagocytophilum DNA Pending A.phagocytophilum Intrp Pending A. phagocytophilum Cmmt Pending Lyme Disease IgG Ab (Negative) Lyme IgG (Western Blot) Lyme IgG 18 kDa Band Lyme IgG 23 kDa Band Lyme IgG 28 kDa Band Lyme IgG 30 kDa Band Lyme IgG 39 kDa Band Lyme IgG 41 kDa Band Lyme IgG 45 kDa Band Lyme IgG 58 kDa Band Lyme IgG 66 kDa Band Lyme IgG 93 kDa Band Lyme Disease IgM Ab (Negative) Lyme IgM (Western Blot) Lyme IgM 23 kDa Band Lyme IgM 39 kDa Band Lyme IgM 41 kDa Band E. chaffeensis IgG Ab Pending E. chaffeensis IgM Ab Pending E. chaffeensis Interp Pending E. chaffeensis Comment Pending Norovirus RNA (PCR) 09/04/18 09/04/18 Range/Units 11:48 11:48 Sodium (136-145) mmol/L Potassium (3.5-5.1) mmol/L Chloride (98-107) mmol/L Carbon Dioxide (21-32) mmol/L Anion Gap (3-11) BUN (7-18) mg/dl Creatinine (0.6-1.2) mg/dl Est Cr Clr Drug Dosing ml/min Est GFR ( Amer) Est GFR (Non-Af Amer) BUN/Creatinine Ratio (10-20) Glucose (70-99) mg/dl Calcium (8.5-10.1) mg/dl Magnesium (1.8-2.4) mg/dl Troponin I < 0.015 (0-0.045) ng/ml TSH (0.300-4.500) uIu/ml Urine Test (Negative) Stl C. diff Tox B Gene (Neg) Stl C.difficile Tox A&B (Negative) Stool H. pylori Ag Urine Opiates Screen (Neg) Ur Methadone, Qual (Neg) Urine Barbiturates (Neg) Ur Phencyclidine (PCP) (Neg) U Amphetamin/Meth Scrn (Neg) MDMA (Ecstasy) Screen (Neg) U Benzodiazepines Scrn (Neg) Ur Cocaine Metabolite (Neg) U Marijuana (THC) Screen (Neg) A. phagocytophilum IgG A. phagocytophilum IgM A. phagocytophilum DNA A.phagocytophilum Intrp A. phagocytophilum Cmmt Lyme Disease IgG Ab Negative (Negative) Lyme IgG (Western Blot) Lyme IgG 18 kDa Band Lyme IgG 23 kDa Band Lyme IgG 28 kDa Band Lyme IgG 30 kDa Band Lyme IgG 39 kDa Band Lyme IgG 41 kDa Band Lyme IgG 45 kDa Band Lyme IgG 58 kDa Band Lyme IgG 66 kDa Band Lyme IgG 93 kDa Band Lyme Disease IgM Ab Negative (Negative) Lyme IgM (Western Blot) Lyme IgM 23 kDa Band Lyme IgM 39 kDa Band Lyme IgM 41 kDa Band E. chaffeensis IgG Ab E. chaffeensis IgM Ab E. chaffeensis Interp E. chaffeensis Comment Norovirus RNA (PCR)
[2018-09-05] MEDS ORDERED: DICYCLOMINE HCL 10 MG CAP PO PRN (14:33)
[2018-09-05] MEDS: SUCRALFATE 1 GM/10 ML UDC PO SCH ×2 (18:13→20:53)
[2018-09-05] MEDS: RANITIDINE HCL SYRUP 150 MG/10 ML UDC PO SCH (20:53)
[2018-09-05] MEDS: FLUTICASONE PROPIONATE NA SPR 16 GM BTL SCH (20:53)
[2018-09-05] MEDS: DICYCLOMINE HCL 10 MG CAP PO SCH (20:53)
[2018-09-05] MEDS ORDERED: TRAZODONE HCL 50 MG TAB PO SCH (21:00)
[2018-09-06 07:08] LABS: Hematocrit (blood only) 41.6 % (37-47); Hemoglobin 14.4 g/dL (12.0-16.0); Mean Corpuscular Hgb Conc 34.6 g/dL (32-36); Mean Corpuscular Volume 90.6 fL (80-100); Mean Platelet Volume 10.8 fL (7.4-10.4); Platelet Count 164 K/uL (130-400); RDW Coefficient of Variation 12.7 % (11.5-14.5); RDW Standard Deviation 41.5 fL (36.4-46.3); Red Blood Count 4.59 M/uL (4.2-5.4); White Blood Count 6.69 K/uL (4.8-10.8)
[2018-09-06 07:48] LABS: Albumin Level 3.3 gm/dl (3.4-5.0); Calcium 9.1 mg/dl (8.5-10.1); Creatinine Clr Calc Pharmacy 53.6 ml/min; Est GFR (African American) 79.6; Est GFR (Non-African American) 68.7; Potassium 3.7 mmol/L (3.5-5.1)
[2018-09-06 07:50] LABS: Albumin Globulin Ratio 0.9 (0.9-2); Bilirubin,Total 0.6 mg/dl (0.2-1); Globulin 3.5 gm/dl (2.5-4.0); Total Protein 6.8 gm/dl (6.4-8.2)
--- NOTE | 2018-09-06 09:09 | Gastroenterology Progress Note ---
Date of Service September 06, 2018 Assessment & Plan (1) Abdominal discomfort: 48 year old female with history of H.Pylori in June treated w/ triple therapy w/ documented clearance in August admitted w/ persistent abdominal pain, dry heaves, diarrhea and weight loss. CT ABD/Pelvis unremarkable, EGD otherwise unremarkable, c.diff toxin negative. Was started on Bentyl, Carafate and noted some improvement of her symptoms overnight. Had one semi-formed, brown stool. Less UGI symptoms as well. - C.diff toxin negative - Follow up H.Pylori - Check stool culture - HIDA scan - GES - Trial Bentyl 10 mg three times daily - Carafate four times daily - FODMAPs diet as tolerated - Diagnostic colonoscopy as an outpatient within the next 1-2 weeks Thank you for allowing us to participate in the care of this patient. Please call with any acute changes, questions or concerns. Please see addendum below with additional recommendation from my supervising physician. Supervising Physician Co-Signing Physician Notes I performed a history and physical examination of the patient, including specifically on physical exam - soft, nontender abdomen. I have discussed the patient's management with Liset. Please refer to the nurse practitioner's note for the documented findings and plan of care. Symptomatically improved. HIDA scan with ? SOD. Continue planned work up as OP. If no other etiologies revealed, may consider ERCP with sphincterotomy. Recall GI if needed. Subjective Pt was seen and evaluated, chart reviewed. No acute events overnight. Slight better last night. Abd pain is better. Less dry heaving. Started Carafate. Believes this is working better. Also started Bentyl. Since eval yesterday around 5pm she has had one BM. Stool was semi-formed. Brown. Denies black or bloody stools. No fever, chills, CP, SOB. She does have inflammation of a joint on her left hand she is hoping to ask primary service about. Stool culture: not obtained H.Pylori: pending C.diff: gene positive, toxin negative GES: not done yet HIDA: not done yet CT ABD/Pelvis w/ IV and PO contrast: Expected postsurgical appearance status post hernia repair. No acute intra-abdominal pathology. EGD 2018: Normal esophagus. Biopsied.Normal stomach. Biopsied. Normal duodenal bulb and second portion of the duodenum.Biopsied. Colonoscopy: 20+ years ago for rectal bleeding, was told she had int ernal/external hemorrhiods Review of Systems Constitutional: + weight loss; no fever, no chills, no body aches and no fatigue Respiratory: no cough, no chest congestion, no dyspnea and no dyspnea on exertion Cardiovascular: no chest pain, no radiating jaw, neck or arm pain, no dyspnea on exertion and no palpitations Gastrointestinal: + belching, + excessive flatulence and + change in stools; no abdominal pain, no bloating, no early satiety, no heartburn, no nausea, no vomiting, no coffee ground emesis, no hematemesis, no pain with swallowing, no dysphagia, no cramping, no change in bowel habits, no constipation, no diarrhea/loose stools, no fecal incontinence, no constant urge to pass stools, no blood in stools, no melena and no problem reported Physical Exam Constitutional: WD/WN, vitals as above Neck: trachea midline Respiratory: normal respiratory effort, lungs clear to auscultation Cardiovascular: RRR, no murmur, no edema Gastrointestinal (Abdomen): Inspection/Auscultation: abdomen normal to inspection (evidence of healed surgical scars on abd) and normal bowel sounds Percussion/Palpation: + abdomen tender (generalized) and abdomen soft; no guarding and abdomen not rigid Skin: no rashes, warm and dry Psychiatric: Orientation: alert and oriented x 3 Results & Data Vital Signs (Past 12 Hours) Vital Signs Temp Pulse Resp BP BP Pulse Ox 09/06/18 07:00 36.8 C 83 20 103/69 97 09/05/18 22:57 36.8 C 71 21 99/64 L 97 Laboratory Results 09/06/18 09/06/18 Range/Units 06:31 06:31 WBC 6.69 (4.8-10.8) K/uL RBC 4.59 (4.2-5.4) M/uL Hgb 14.4 (12.0-16.0) g/dL Hct 41.6 (37-47) % MCV 90.6 (80-100) fL MCH 31.4 (25-34) pg MCHC 34.6 (32-36) g/dL RDW Std Deviation 41.5 (36.4-46.3) fL RDW Coeff of Stan 12.7 (11.5-14.5) % Plt Count 164 (130-400) K/uL MPV 10.8 H (7.4-10.4) fL Sodium 141 (136-145) mmol/L Potassium 3.7 (3.5-5.1) mmol/L Chloride 108 H (98-107) mmol/L Carbon Dioxide 28 (21-32) mmol/L Anion Gap 5.0 (3-11) BUN 10 (7-18) mg/dl Creatinine 0.98 (0.6-1.2) mg/dl Est Cr Clr Drug Dosing 53.6 ml/min Est GFR ( Amer) 79.6 Est GFR (Non-Af Amer) 68.7 BUN/Creatinine Ratio 10.0 (10-20) Glucose 90 (70-99) mg/dl Calcium 9.1 (8.5-10.1) mg/dl Total Bilirubin 0.6 (0.2-1) mg/dl AST 11 L (15-37) U/L ALT 20 (12-78) U/L Alkaline Phosphatase 59 (45-117) U/L Total Protein 6.8 (6.4-8.2) gm/dl Albumin 3.3 L (3.4-5.0) gm/dl Globulin 3.5 (2.5-4.0) gm/dl Albumin/Globulin Ratio 0.9 (0.9-2)
--- NOTE | 2018-09-06 09:54 | Infectious Disease Consult ---
Date of Consultation September 06, 2018 Assessment & Plan (1) Abdominal discomfort: No infectious etiology identified. stool culture negative, no colitis on ct. afebrile, wbc nml. would not treat for c diff with absence of + toxin. ? IBS, agree with outpt GI eval/colonoscopy. With regards to finger lesion, doubt this is tick related, suggest warm compress. No new ID recs at this time, would follow off of abx. Thank you History of Present Illness Attending Physician: Rhea Magana pt admitted with dry heaves and intermittent loose stool. on my exam today, states she is feeling better. no dry heaves or vomiting, slept well overnight. no f/c. was recently treated as an outpatient a few months ago for H. pylori, repeat stool study negative. She is currently npo for procedure but states she is hungry. currently denies diarrhea. no blood in stool. denies abd pain. GI following, ? IBS, for colonoscopy in next 1-2 weeks. In ER she had stool c. diff, gene + and toxin negative. received vanco in ER then stopped on admission. She was also given a PPI as outpatient for GERD symptoms but has not been taking per chart. stool cultures negative. she has been afebrile since admission, wbc today 6.6, ct abd in ER negative for colitis. UA 10-30 wbc, no bacteria, culture contaminated, no gu symptoms on exam. UDS negative in ER, tick panel pending but she denies rash, myalgias, arthralgias, tick bites. on no abx currently. She currently denies cp, sob, cough, wheeze, no abd pain, no n/v/d, asking to eat. Only complaint on my exam is of a tender area on 5th digit, no open wounds, no trauma, no drainage. ID referral for + c diff gene with negative toxin. Allergies Allergy/AdvReac Type Severity Reaction Status Date / Time soy Allergy Unknown UNKNOWN Verified 09/04/18 14:35 Home Medications Home Medications Medication Instructions Recorded Confirmed Type cholecalciferol (vitamin D3) 2,000 unit PO QAM 09/04/18 09/04/18 History [Vitamin D3] loratadine [Claritin] 10 mg PO QAM 09/04/18 09/04/18 History triamcinolone acetonide [Nasacort] 1 spray INTRANASAL QA 09/04/18 09/04/18 History Patient History Medical History H. 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 Beliefs That Will Affect Care: None marital status: Current Living Situation: Spouse and Family current occupational status: unemployed Other Information That Helps Us Care for You: No Feels Safe at Home: Yes Safety Concerns: Feels Safe At This Time Smoking Status: Never smoker Do You Dip or Chew Tobacco: No Second Hand Exposure: No Tobacco Cessation Education Requested by Patient: No Hx Alcohol Use: No Hx Substance Use: No Review of Systems Review of Systems: All systems reviewed & are unremarkable except as noted in HPI & below Physical Exam Constitutional: WD/WN, vitals as above Eyes: PERRL, conjunctivae normal, anicteric sclerae ENMT: external ear and nose normal, oropharynx normal Neck: normal visual inspection Respiratory: normal respiratory effort, lungs clear to auscultation Cardiovascular: RRR, no murmur, no edema Gastrointestinal (Abdomen): normal bowel sounds, soft, nontender, no hepatosplenomegaly Inspection/Auscultation: abdomen normal to inspection and normal bowel sounds; abdomen not distended Percussion/Palpation: abdomen soft; abdomen nontender, no guarding and abdomen not rigid Musculoskeletal: no cyanosis or clubbing, extremities motor strength 5/5 Skin: no rashes, warm and dry 5th finger with min erythema, appears as early pimple formation, no fluctuance, no warmth, no induration, no open areas no decreased rom. Psychiatric: A+Ox3, euthymic affect Results & Data Vital Signs (Past 12 Hours) Vital Signs Temp Pulse Resp BP BP Pulse Ox 09/06/18 07:00 36.8 C 83 20 103/69 97 09/05/18 22:57 36.8 C 71 21 99/64 L 97 Laboratory Results Microbiology 09/04/18 11:53 Stool Shiga Toxin Test - Preliminary 09/04/18 11:53 Stool Stool Culture - Preliminary No Salmonella isolated to date, No Shigella isolated to date, No Campylobacter jejuni isolated to date. 09/04/18 11:48 Urine,Clean Catch Urine Culture - Final More than three types of organisms present, all high counts mixed probable skin lin - No further identifications or sensitivities to follow.
[2018-09-06] MEDS ORDERED: SINCALIDE IV ONE (11:00)
[2018-09-06] MEDS ORDERED: SODIUM CHLORIDE 0.9% IV ONE (11:00)
--- NOTE | 2018-09-06 12:04 | Nuclear Medicine Report ---
NM hepatobiliary EF HISTORY: Pain. Nausea. abd pain, dry heaving COMPARISON: None. TECHNIQUE: Immediately following the intravenous administration of 5.6 mCi Tc-99m Choletec, dynamic a nterior abdominal imaging pre/post 1 mcg of Kinevac was performed. FINDINGS: Uniform hepatic tracer accumulation is shown. Prompt intrahepatic biliary excretion is seen. The gall bladder, common bile duct, and small bowel are all visualized by 7 minutes. This appearance represent s the normal sequence of biliary excretion. The gallbladder ejection fraction following administration of Kinevac was 47 % (normal >35%). IMPRESSION: 1. No evidence for cystic duct obstruction. 2. Gallbladder ejection fraction calculated to be 47 %. 3. Slight delay in small bowel activity raising the possibility of distal common bile duct dysfunctio n The above report was generated using voice recognition software. It may contain grammatical, syntax or spelling errors. Electronically signed by: Rajinder Mcfarland M.D. 09/06/2018 12:02 PM
[2018-09-06] MEDS: LORATADINE 10 MG TAB PO SCH (12:19)
[2018-09-06] MEDS: LACTOBACILLUS ACIDOPHILUS (FLORANEX) TAB PO SCH ×2 (12:19→13:29)
[2018-09-06] MEDS: CHOLECALCIFEROL 1,000 UNITS TAB PO SCH (12:20)
[2018-09-06] MEDS: RANITIDINE HCL SYRUP 150 MG/10 ML UDC PO SCH (12:20)
[2018-09-06] MEDS: DICYCLOMINE HCL 10 MG CAP PO SCH ×2 (12:20→13:30)
[2018-09-06] MEDS: SUCRALFATE 1 GM/10 ML UDC PO SCH ×2 (12:20→13:30)
--- NOTE | 2018-09-06 13:21 | Hospitalist Progress Note ---
Date of Service September 06, 2018 Assessment & Plan (1) C. difficile diarrhea: (2) Abdominal discomfort: Pt presenting with ongoing epigastric discomfort, nausea, dry heaves and 3 loose BM's daily -Afebrile, no leukocytosis, no electrolyte abnormality -Work up this admission - C-diff gene positive, with negative c-diff toxin. Started empirically on oral vancomycin in ER, which was discontinued by GI. Stool cultures negative to date . CT abd/pelvis- No acute findings, post surgical appearance status post hernia repair. HIDA scan- No cystic duct obstruction, GB EF 47%, slight delay in small bowel activity raising possibility of distal common bile duct dysfunction. -Work up in past- EGD 2018- unremarkable -Feels better with Bentyl 10 mg TID PRN, Carafate QID- continue on discharge -Continue with Zantac 150 mg BID -[employer] was consulted- Probiotics, MVI suggested PLAN: -GES will be scheduled outpatient per my d/w GI. Cleared for discharge (3) H. pylori infection: H/o recent H Pylori diagnosed by EGD in 06/2018. Treated with omeprazole, clarithromycin, amoxicillin x14 day. Had follow up H. pylori stool which was negative on 08/16/2018 (4) Insomnia: -Tried Ambien last night without relief -Started Trazodone 50mg HS this admission -Patient wants to be discharged on Trazodone. Would defer it to PCP as hesitant to start her on insomnia medications. May need evaluation for anxiety disorder and consider definitive treatment -Arrangement made for sooner follow up in 2 days (5) Anxiety: Need to follow up outpatient and consider for definitive treatment plan (6) Headache: Tension headache due to anxiety, lack of sleep -better -Tylenol PRN DVT Ppx: Teds Code status: FULL PCP: Jose M Dispo: Ok to discharge home today Subjective Pt was seen and evaluated, chart reviewed. No acute events overnight. Abdominal pain has almost resolved. Tolerated her diet well. No nausea, vomiting, fever, chills. C/o insomnia and not been able to sleep at night. [place] better on trazodone and wants to be discharged on it. Physical Exam Physical Exam: GENERAL- AAOX3, Anxious + LUNGS- Air entry bilaterally equal. No rales, rhonchi, crackles, wheezes heard. HEART- Regular rate and rhythm. No murmurs ABDOMEN- Soft, non tender, non distended, Bowel sounds heard. EXTREMITIES- Good peripheral pulses, no edema Results & Data Vital Signs (Past 12 Hours) Vital Signs Temp Pulse Resp BP Pulse Ox 09/06/18 07:00 36.8 C 83 20 103/69 97
--- NOTE | 2018-09-06 14:11 | Discharge Summary ---
Date of Service September 06, 2018 Admission HPI Per Admitting Provider Pt is 48 y/o F with PMH H Pylori diagnosed by EGD in 06/2018 presented to ER with c/o abdominal discomfort. Pt was treated with omeprazole, clarithromycin, amoxicillin x14 days for H. pylori in 06/2018. Patient had follow-up H. pylori stool which was negative on 08/16/2018. Has not continued to take any PPI's. Patient reports has had continued epigastric discomfort. States has had decreased appetite. Has been eating a bland diet (rice, oatmeal, apples) however has been eating small amounts secondary to increased epigastric discomfort with eating. Patient reports has been having intermittent dry heaves worse after eating. Reports 3 loose stools in the morning daily. States his last approximately 11 pounds over the last 6-8 weeks. She states has been feeling weak and shaky. Concerned about her nutritional status with her limited oral intake. States having trouble with awakening from sleep and unable to return to sleep over the past 2 months also. Denies fever/chills, diaphoresis, hematemesis, hematochezia, melena, PICKETT, dizziness, syncope, vision changes, neck pain, CP, SOB, orthopnea, palpitations, cough, sore throat, choking, otalgia, rhinorrhea, paresthesias, extremity weakness, extremity edema, rashes, urinary symptoms. Denies recent travel. Denies known ill contacts. Denies known hx c- diff in past. Principal Diagnosis 1. Abdominal discomfort/Diarrhea, acute causes ruled out 2. Anxiety 3. Insomnia SECONDARY DIAGNOSIS ON DISCHARGE 1. Hx of H pylori infection Discharge Exam GENERAL- AAOX3, Anxious + LUNGS- Air entry bilaterally equal. No rales, rhonchi, crackles, wheezes heard. HEART- Regular rate and rhythm. No murmurs ABDOMEN- Soft, non tender, non distended, Bowel sounds heard. EXTREMITIES- Good peripheral pulses, no edema Discharge Data Allergies Allergy/AdvReac Type Severity Reaction Status Date / Time soy Allergy Unknown UNKNOWN Verified 09/04/18 14:35 Consultations 09/04/18 16:59 ED Decision to Admit Stat 09/05/18 11:06 Consult Gastroenterology Routine 09/05/18 14:35 Consult Infectious Diseases Routine Ordered Studies 09/04/18 12:41 CT abd pelvis oral and IV con Stat Hospital Course (1) C. difficile diarrhea: (2) Abdominal discomfort: Pt presenting with ongoing epigastric discomfort, nausea, dry heaves and 3 loose BM's daily -Afebrile, no leukocytosis, no electrolyte abnormality -Work up this admission - C-diff gene positive, with negative c-diff toxin. Started empirically on oral vancomycin in ER, which was discontinued by GI. Stool cultures negative to date . CT abd/pelvis- No acute findings, post surgical appearance status post hernia repair. HIDA scan- No cystic duct obstruction, GB EF 47%, slight delay in small bowel activity raising possibility of distal common bile duct dysfunction. -Work up in past- EGD 2019- unremarkable -Feels better with Bentyl 10 mg TID PRN, Carafate QID- continue on discharge -Continue with Zantac 150 mg BID -[employer] was consulted- Probiotics, MVI suggested PLAN: -GES will be scheduled outpatient per my d/w GI. Cleared for discharge (3) H. pylori infection: H/o recent H Pylori diagnosed by EGD in 06/2018. Treated with omeprazole, clarithromycin, amoxicillin x14 day. Had follow up H. pylori stool which was negative on 08/16/2018 (4) Insomnia: -Tried Ambien last night without relief -Started Trazodone 50mg HS this admission -Patient wants to be discharged on Trazodone. Would defer it to PCP as hesitant to start her on insomnia medications. May need evaluation for anxiety disorder and consider definitive treatment -Arrangement made for sooner follow up in 2 days (5) Anxiety: Need to follow up outpatient and consider for definitive treatment plan (6) Headache: Tension headache due to anxiety, lack of sleep -better -Tylenol PRN DVT Ppx: Teds Code status: FULL PCP: Jose M Dispo: Ok to discharge home today Total Time Total Time Spent Total Time Spent (In Minutes): 32 minutes Discharge Plan Discharge Items Patient Disposition: Home - Self-Care Reason For Visit: ABDOMINAL PAIN Discharge Diagnosis: Abdominal pain, acute causes ruled out Discharge Goals: Decrease discomfort Activity: Resume your previous activity Non-emergency contact: Primary Care Provider Call non-emergency contact if: your symptoms worsen Follow-up/Referrals: Melania Woodard [Other] - 09/08/18 12:45 pm Trini Macias V. [Primary Care Provider] - Diet: Low Fiber Addtl Provider Instructions: MEDICATION CHANGES: 1. New medication- Bentyl 10 mg three times a day as needed for abdominal cramps 2. New medication- Sucralfate four times a day as directed 3. Outpatient Multivitamins and probiotics recommended 4. New medication- Zantac 150 mg PO twice a day Prescriptions: New dicyclomine 10 mg Capsule 10 mg PO TID PRN (Reason: Abdominal Discomfort) 10 Days Qty: 30 RF: 0 sucralfate 1 gram tablet 1 g PO QID 15 Days Qty: 60 RF: 0 ranitidine HCl [Zantac] 150 mg tablet 150 mg PO BID Qty: 60 RF: 0 Continued triamcinolone acetonide [Nasacort] 55 mcg Aerosol,[place] 1 spray INTRANASAL QAM RF: 0 loratadine [Claritin] 10 mg Tablet 10 mg PO QAM RF: 0 cholecalciferol (vitamin D3) [Vitamin D3] 2,000 unit Tablet 2,000 unit PO QAM RF: 0 Stand-Alone Forms: Call Back Authorization, [facility] Discharge Orders: Discharge Order (Routine); Ordered 09/06/18 Ordered By: Rhea Magana Admission Data Admit Date/Time: 09/04/18 17:46 Attending Provider: Rhea Magana Admit Provider: Shira Jimenez Primary Care Provider: Trini Macias V. Other Providers: Shira Jimenez ; Marcelino Altamirano ; Micaela Torres Service: Medical
[2018-09-07 19:54] LABS: Anaplasma phagocytophila IgM <1:20 (<1:20); Ehrlichia chaff IgG Ab <1:64 (<1:64); Ehrlichia chaff IgM Ab <1:20 (<1:20)
[2018-09-08 01:52] LABS: 18KDIGG Band NONREACTIVE (NONREACTIVE); 23KDIGG Band NONREACTIVE (NONREACTIVE); 23KDIGM Band NONREACTIVE (NONREACTIVE); 28KDIGG Band NONREACTIVE (NONREACTIVE); 30KDIGG Band NONREACTIVE (NONREACTIVE); 39KDIGG Band NONREACTIVE (NONREACTIVE); 39KDIGM Band NONREACTIVE (NONREACTIVE); 41KDIGG Band REACTIVE (NONREACTIVE); 41KDIGM Band NONREACTIVE (NONREACTIVE); 45KDIGG Band NONREACTIVE (NONREACTIVE); 58KDIGG Band NONREACTIVE (NONREACTIVE); 66KDIGG Band NONREACTIVE (NONREACTIVE); 93KDIGG Band NONREACTIVE (NONREACTIVE); Lyme Antibodies, WB IgG NEGATIVE (NEGATIVE); Lyme Antibodies, WB IgM NEGATIVE (NEGATIVE)
== END 2018-09-06 15:18 | disposition home or self-care (01) ==
LOC: 4W 11:21 → ED 11:21 → SUATTDRO 17:46